=== PATIENT | male | born 1955 | race Caucasian/White ===

== ENCOUNTER 2021-07-26 14:09 | Emergency (ER) | payer MEDICARE ==
[~2021-07-26] VITALS: Ht 167.6 cm; Wt 91.9 kg
[2021-07-26] MEDS ORDERED: IBUP-2029 MT (16:18)
[2021-07-26] MEDS ORDERED: IBUPROFEN 800MG TABLET PO ONE (16:30)
[2021-07-26 16:46] VITALS: BP 156/89
== END 2021-07-26 17:17 | disposition home or self-care (01) ==
LOC: ER 14:09
DX: M79.672 Pain in left foot (principal); M79.671 Pain in right foot; J45.909 Unspecified asthma, uncomplicated; Z79.899 Other long term (current) drug therapy
CPT/HCPCS: 99282